=== PATIENT | female | born 1995 | race Caucasian/White ===

== ENCOUNTER 2020-08-31 22:34 | Emergency (ER) | payer MEDICAID, OTHER ==
[~2020-08-31] VITALS: Ht 160 cm; Wt 54.4 kg
[2020-08-31 22:51] VITALS: BP 127/94
== END 2020-09-01 03:00 | disposition left against medical advice (07) ==
LOC: ER 22:36
DX: L02.611 Cutaneous abscess of right foot (principal); Z53.21 Procedure and treatment not carried out due to patient leaving prior to being seen by health care provider
CPT/HCPCS: 73700; 81025